=== PATIENT | female | born 1950 | race Caucasian/White ===

== ENCOUNTER 2024-10-16 09:27 | Inpatient (IN) ==
--- NOTE | 2024-10-16 10:05 | Emergency Department Note ---
Impression & Plan Pyelonephritis, COVID, Hematoma of abdominal wall, Acute UTI, On warfarin therapy, Elevated troponin ED Provider Note NAME: ISAIAH IRELAND AGE: 74 SEX: F : 1950 ARRIVES VIA: Walk-In INFORMANT: Patient ED PROVIDER(S): Cesar Castro DO CHIEF COMPLAINT: Fever HPI: Patient is a 74-year-old female on Coumadin with a history of mitral valve replacement who presents to the ER for fevers as high as 102-103. Symptoms started yesterday. She admits to diffuse shaking chills. Has a faint headache. No neck pain. No chest pain or shortness of breath. No vomiting or diarrhea. She admits to abdominal wall hematoma while she was given herself shots of Lovenox bridging to Coumadin. She notes it is feeling better. No dysuria, urgency or frequency. No other exacerbating or remitting factors. She denies any cough, congestion or runny nose. ADDITIONAL HISTORY OBTAINED: Per HPI Chronic Medical/Social Conditions Affecting Care: Per HPI PAST MEDICAL HISTORY:See Below PAST SURGICAL HISTORY:See Below FAMILY HISTORY:See Below SOCIAL HISTORY:See Below HOME MEDICATIONS:See Below ALLERGIES:See Below VITALS:See Below PHYSICAL EXAMINATION: GENERAL: Sitting up in bed, alert, well appearing, well nourished, no distress, non-toxic EYE EXAM: normal conjunctiva. PERRL and EOM's grossly intact. OROPHARYNX: no exudate, no erythema, lips, buccal mucosa, and tongue normal and mucous membranes are moist NECK: supple, no nuchal rigidity, no adenopathy, non-tender LUNGS: Clear to auscultation. Normal chest wall mechanics HEART: no murmurs, S1 normal and S2 normal ABDOMEN: Firmness in the left lateral abdomen with bruising tracking to the suprapubic region, non-tender, normo-active bowel sounds, no masses, no rebound or guarding. UPPER EXTREMITIES: upper extremities are grossly normal. LOWER EXTREMITIES: No pitting edema. NEURO EXAM: Normal sensorium, cranial nerves II-XII grossly intact, normal speech, no gross weakness of arms, no gross weakness of legs. MEDICAL DECISION MAKING: Patient is a 74-year-old female who presents ER for the below stated complaint. IV was established and blood work was obtained. Labs show no significant leukocytosis and a mild anemia at 10.1. INR at 1.9. BMP with mild hyponatremia at 131. Glucose at 139. LFTs and bilirubin while unremarkable. Troponin mildly elevated in 30s. UA with leuks whites and +2 bacteria although slightly Contaminated with epithelial cells. CT abdomen pelvis suggested pyelonephritis. Viral panel was positive for COVID. Chest x-ray with improving opacities in the bases. Patient was given IV fluids and IV Rocephin. Updated bedside discussed case with the hospitalist for further evaluation management treatment. Consults/Care Managements Discussions: Per [facility] Triage Nursing notes reviewed. Limited review of prior medical records performed Vital Signs: reviewed and remarkable for no significant abnormalities Differential diagnosis: Differential diagnosis includes etiologies such as sepsis, UTI, pneumonia, metabolic, electrolyte abnormalities, cardiac sources, intracerebral event, toxicologic, neurological, as well as others were entertained. ER treatment provided: See below Diagnostics interpreted by me include EKG and cardiac monitoring as listed below: -Cardiac Monitoring: An order was placed for continuous cardiac monitoring. The monitor shows a rate of 80 with sinus rhythm. -ECG: Sinus rhythm rate 76 Normal axis No PVCs QTc 436 -Laboratory studies:Interpreted by me as stated above in MDM and shown below. Imaging studies: Xrays: As interpreted by me: Portable AP upright 1 view of the chest shows bilateral lower lobe infiltrates with pacemaker in place CTs show: CT abdomen pelvis as described above showed pyelonephritis and lower lobe infiltrates Procedures:none Critical Care: None Past Med/Surg History Problem List (Updated 10/16/24 @ 15:32 by Cesar Castro DO) Elevated troponin (Acute) Acute UTI (Acute) COVID (Acute) Pyelonephritis (Acute) COVID On warfarin therapy (Acute) Subtherapeutic international normalized ratio (INR) (Acute) H/O mitral valve replacement with mechanical valve (Acute) Hematoma of abdominal wall (Acute) Medical History Hypertension Surgical History History of carpal tunnel surgery of left wrist H/O mitral valve replacement Social History Smoking Status: Never smoker Preferred Language: [place] Feels Safe at Home: Yes Allergies Allergies Allergy/AdvReac Type Severity Reaction Status Date / Time Sulfa (Sulfonamide Allergy Intermediate Hives Unverified 10/07/24 11:42 Antibiotics) Home Meds Home Medications Medication Instructions Recorded Confirmed ascorbic acid (vitamin C) 500 mg 500 mg PO DAILY 10/07/24 10/16/24 tablet (Vitamin C) atenolol 25 mg tablet 12.5 mg PO DAILY 10/07/24 10/16/24 cholecalciferol (vitamin D3) 25 25 mcg PO DAILY 10/07/24 10/16/24 mcg (1,000 unit) tablet (Vitamin D3) hydrochlorothiazide 12.5 mg tablet 12.5 mg PO DAILY 10/07/24 10/16/24 lactobacillus combination no.4 3 3,000 mmu cells PO DAILY 10/07/24 10/16/24 billion cell capsule (Probiotic) omega [id number] oil 1,000 mg 1 cap PO DAILY 10/07/24 10/16/24 (120 mg-180 mg) capsule (Fish Oil) paroxetine HCl 20 mg tablet 20 mg PO DAILY 10/07/24 10/16/24 thiamine HCl (vitamin B1) 100 mg 100 mg PO DAILY 10/07/24 10/16/24 tablet (Vitamin B-1) warfarin 5 mg tablet See Rx Instructions .Route .COMPLEX 10/07/24 10/16/24 zinc gluconate 100 mg tablet 100 mg PO DAILY 10/16/24 10/16/24 Results & Data (ED) Vital Signs Vital Signs - 24 hr 10/16/24 09:39 10/16/24 10:24 10/16/24 10:30 Temperature 37.7 C H Temperature Source Oral Pulse Rate 77 87 87 Pulse Rate from SpO2 Sensor Pulse Rhythm Regular Pulse Strength Normal Respiratory Rate 18 16 16 Respiratory Effort / Characteristics Non-Labored Respiratory Depth Normal Respiratory Pattern Regular Blood Pressure 110/65 108/54 L 111/45 L Blood Pressure Mean 80 76 64 Blood Pressure Position Sitting Pulse Oximetry 97 96 96 Oxygen Delivery Method Room Air Room Air Room Air Oxygen Flow Rate Sepsis Recent Fever Within 48 Hours Yes Sepsis New/Unexplained Change in Mental Status N/A Sepsis Action Taken by Nursing No Action Required 10/16/24 11:00 10/16/24 11:30 10/16/24 11:45 Temperature Temperature Source Pulse Rate 78 Pulse Rate from SpO2 Sensor Pulse Rhythm Pulse Strength Respiratory Rate 16 Respiratory Effort / Characteristics Respiratory Depth Respiratory Pattern Blood Pressure 124/60 119/67 Blood Pressure Mean 86 94 Blood Pressure Position Pulse Oximetry 96 89 L 97 Oxygen Delivery Method Room Air Nasal Cannula Room Air Oxygen Flow Rate 4 Sepsis Recent Fever Within 48 Hours Sepsis New/Unexplained Change in Mental Status Sepsis Action Taken by Nursing 10/16/24 12:00 10/16/24 12:08 10/16/24 12:30 Temperature Temperature Source Pulse Rate 83 71 83 Pulse Rate from SpO2 Sensor Pulse Rhythm Pulse Strength Respiratory Rate 22 14 Respiratory Effort / Characteristics Respiratory Depth Respiratory Pattern Blood Pressure 116/61 120/51 L Blood Pressure Mean 89 85 Blood Pressure Position Pulse Oximetry 98 Oxygen Delivery Method Room Air Oxygen Flow Rate Sepsis Recent Fever Within 48 Hours Sepsis New/Unexplained Change in Mental Status Sepsis Action Taken by Nursing 10/16/24 12:45 10/16/24 13:00 10/16/24 13:15 Temperature Temperature Source Pulse Rate 85 81 Pulse Rate from SpO2 Sensor 85 Pulse Rhythm Pulse Strength Respiratory Rate 16 19 16 Respiratory Effort / Characteristics Respiratory Depth Respiratory Pattern Blood Pressure 118/65 114/50 L 121/61 Blood Pressure Mean 85 71 82 Blood Pressure Position Pulse Oximetry 98 94 98 Oxygen Delivery Method Room Air Room Air Room Air Oxygen Flow Rate Sepsis Recent Fever Within 48 Hours Sepsis New/Unexplained Change in Mental Status Sepsis Action Taken by Nursing Laboratory Data 10/16/24 10:00 10/16/24 10:00 Lab Results 10/16/24 10/16/24 10/16/24 Range/Units 10:00 10:20 10:29 WBC 8.25 (4.8-10.8) K/ul RBC 3.39 L (4.20-5.40) M/uL Hgb 10.1 L (12.0-16.0) g/dl POC Hgb 9.9 L (12.0-16.0) g/dl Hct 30.5 L (37.0-47.0) % POC Hct 29 L (37-47) % MCV 90.0 (80.0-100.0) fL MCH 29.8 (25.0-34.0) pg MCHC 33.1 (32.0-36.0) g/dL RDW Std Deviation 45.6 (36.4-46.3) fL RDW Coeff of Gregorio 14.2 (11.5-14.5) % Plt Count 349 (130-400) K/uL MPV 9.0 L (9.4-12.4) fL Immature Gran % (Auto) 0.8 % Neut % (Auto) 80.7 % Lymph % (Auto) 6.2 % [place] % (Auto) 11.9 % Eos % (Auto) 0.2 % Baso % (Auto) 0.2 % Neut # (Auto) 6.65 H (1.40-6.50) K/uL Lymph # (Auto) 0.51 L (1.20-3.40) K/uL [place] # (Auto) 0.98 H (0.11-0.59) K/uL Eos # (Auto) 0.02 (0.00-0.50) K/uL Baso # (Auto) 0.02 (0.00-0.20) K/uL Immature Gran # (Auto) 0.07 (0.01-0.20) K/uL PT 19.7 H (9.0-12.0) Seconds INR 1.9 H (0.9-1.1) POC Sodium 132 L (135-144) mmol/L Sodium 131 L (136-145) mmol/L POC Potassium 3.8 (3.3-5.0) mmol/L Potassium 3.9 (3.5-5.1) mmol/L POC Chloride 94 L (101-112) mmol/L Chloride 97 L (98-107) mmol/L Carbon Dioxide 29 (21-32) mmol/L POC Total CO2 28 (24-31) mmol/L Anion Gap 5 (3-11) POC Anion Gap 14.0 L (16-25) mmol/L POC BUN 15 (7-18) mg/dl BUN 16 (6-23) mg/dl Creatinine 0.89 (0.6-1.2) mg/dl POC Creatinine 1.1 (0.6-1.3) mg/dl Est Cr Clr Drug Dosing 50.6 ml/min eGFR 67.57 BUN/Creatinine Ratio 18.0 (10-20) Glucose 139 H (70-99(Fasting)) mg/dl POC Glucose (other) 136 H (70-99) mg/dl Lactate 1.5 (0.4-2.0) mmol/L Calcium 9.1 (8.6-10.3) mg/dl POC Ioniz Calcium Ricky 1.15 (1.12-1.32) mmol/l Magnesium 1.7 (1.7-2.4) mg/dl Total Bilirubin 0.6 (0.2-1.0) mg/dl Direct Bilirubin TNP AST 30 (13-39) U/L ALT 23 (7-52) U/L Alkaline Phosphatase 76 (34-104) U/L Troponin I High Sens 36.2 H (0-14) pg/ml Total Protein 7.2 (6.0-8.3) gm/dl Albumin 3.5 (3.4-5.0) gm/dl Procalcitonin 0.14 (0-0.5) ng/ml Urine Color Yellow Urine Appearance Cloudy A (Clear) Urine pH 6.0 (4.5-7.5) Ur Specific [place] 1.020 (1.000-1.030) Urine Protein Negative (Negative) Urine Glucose (UA) Negative (Negative) Urine Ketones Negative (Negative) Urine Blood Negative (Negative) Urine Nitrite Negative (Negative) Urine Bilirubin Negative (Negative) Urine Urobilinogen Negative (Negative) Ur Leukocyte Esterase 2+ H (Negative) Urine WBC (Auto) 21-50 H (0-5) /hpf Urine RBC (Auto) 0-2 (0-2) /hpf U Hyaline Cast (Auto) 0-2 (0-2) /lpf U Epithel Cells (Auto) 11-20 H (0-2) /hpf Urine Bacteria (Auto) 2+ H (None Seen) Adenovirus (PCR) Not Detected (NotDetected) B. pertussis DNA (PCR) Not Detected (NotDetected) B.parapertussis DNA PCR Not Detected (NotDetected) C. pneumoniae DNA (PCR) Not Detected (NotDetected) Coronavirus OC43 (PCR) Not Detected (NotDetected) Coronavirus HKU1 (PCR) Not Detected (NotDetected) Coronavirus 229E (PCR) Not Detected (NotDetected) SARS-CoV-2 (PCR) DETECTED A (NotDetected) Coronavirus NL63 (PCR) Not Detected (NotDetected) Human Metapneumovir PCR Not Detected (NotDetected) Influenza Type A (PCR) Not Detected (NotDetected) Influenza Type B (PCR) Not Detected (NotDetected) M. pneumoniae (PCR) Not Detected (NotDetected) Parainfluenza 1 (PCR) Not Detected (NotDetected) Parainfluenza 2 (PCR) Not Detected (NotDetected) Parainfluenza 3 (PCR) Not Detected (NotDetected) Parainfluenza 4 (PCR) Not Detected (NotDetected) RSV (PCR) Not Detected (NotDetected) Entero/Rhino (PCR) Not Detected (NotDetected) 10/16/24 Range/Units 12:13 WBC (4.8-10.8) K/ul RBC (4.20-5.40) M/uL Hgb (12.0-16.0) g/dl POC Hgb (12.0-16.0) g/dl Hct (37.0-47.0) % POC Hct (37-47) % MCV (80.0-100.0) fL MCH (25.0-34.0) pg MCHC (32.0-36.0) g/dL RDW Std Deviation (36.4-46.3) fL RDW Coeff of Gregorio (11.5-14.5) % Plt Count (130-400) K/uL MPV (9.4-12.4) fL Immature Gran % (Auto) % Neut % (Auto) % Lymph % (Auto) % [place] % (Auto) % Eos % (Auto) % Baso % (Auto) % Neut # (Auto) (1.40-6.50) K/uL Lymph # (Auto) (1.20-3.40) K/uL [place] # (Auto) (0.11-0.59) K/uL Eos # (Auto) (0.00-0.50) K/uL Baso # (Auto) (0.00-0.20) K/uL Immature Gran # (Auto) (0.01-0.20) K/uL PT (9.0-12.0) Seconds INR (0.9-1.1) POC Sodium (135-144) mmol/L Sodium (136-145) mmol/L POC Potassium (3.3-5.0) mmol/L Potassium (3.5-5.1) mmol/L POC Chloride (101-112) mmol/L Chloride (98-107) mmol/L Carbon Dioxide (21-32) mmol/L POC Total CO2 (24-31) mmol/L Anion Gap (3-11) POC Anion Gap (16-25) mmol/L POC BUN (7-18) mg/dl BUN (6-23) mg/dl Creatinine (0.6-1.2) mg/dl POC Creatinine (0.6-1.3) mg/dl Est Cr Clr Drug Dosing ml/min eGFR BUN/Creatinine Ratio (10-20) Glucose (70-99(Fasting)) mg/dl POC Glucose (other) (70-99) mg/dl Lactate (0.4-2.0) mmol/L Calcium (8.6-10.3) mg/dl POC Ioniz Calcium Ricky (1.12-1.32) mmol/l Magnesium (1.7-2.4) mg/dl Total Bilirubin (0.2-1.0) mg/dl Direct Bilirubin AST (13-39) U/L ALT (7-52) U/L Alkaline Phosphatase (34-104) U/L Troponin I High Sens 32.5 H (0-14) pg/ml Total Protein (6.0-8.3) gm/dl Albumin (3.4-5.0) gm/dl Procalcitonin (0-0.5) ng/ml Urine Color Urine Appearance (Clear) Urine pH (4.5-7.5) Ur Specific [place] (1.000-1.030) Urine Protein (Negative) Urine Glucose (UA) (Negative) Urine Ketones (Negative) Urine Blood (Negative) Urine Nitrite (Negative) Urine Bilirubin (Negative) Urine Urobilinogen (Negative) Ur Leukocyte Esterase (Negative) Urine WBC (Auto) (0-5) /hpf Urine RBC (Auto) (0-2) /hpf U Hyaline Cast (Auto) (0-2) /lpf U Epithel Cells (Auto) (0-2) /hpf Urine Bacteria (Auto) (None Seen) Adenovirus (PCR) (NotDetected) B. pertussis DNA (PCR) (NotDetected) B.parapertussis DNA PCR (NotDetected) C. pneumoniae DNA (PCR) (NotDetected) Coronavirus OC43 (PCR) (NotDetected) Coronavirus HKU1 (PCR) (NotDetected) Coronavirus 229E (PCR) (NotDetected) SARS-CoV-2 (PCR) (NotDetected) Coronavirus NL63 (PCR) (NotDetected) Human Metapneumovir PCR (NotDetected) Influenza Type A (PCR) (NotDetected) Influenza Type B (PCR) (NotDetected) M. pneumoniae (PCR) (NotDetected) Parainfluenza 1 (PCR) (NotDetected) Parainfluenza 2 (PCR) (NotDetected) Parainfluenza 3 (PCR) (NotDetected) Parainfluenza 4 (PCR) (NotDetected) RSV (PCR) (NotDetected) Entero/Rhino (PCR) (NotDetected) Administered Medications Sodium Chloride (Nss) 1,000 mls @ 125 mls/hr IV .Q8H AYALA Stop: 10/17/24 13:29 Last Admin: 10/16/24 13:57 Dose: 125 mls/hr Documented By: MINA Discontinued Medications Sodium Chloride (Nss) 1,000 mls @ 999 mls/hr IV .Q1H1M ONE Stop: 10/16/24 11:01 Last Infusion: 10/16/24 12:28 Dose: Infused Documented By: Admin: 10/16/24 10:23 Dose: 999 mls/hr Documented By: MINA Ceftriaxone Sodium (Rocephin) 2,000 mg in 50 mls @ 100 mls/hr IV NOW STA Stop: 10/16/24 11:38 Last Infusion: 10/16/24 12:28 Dose: Infused Documented By: Admin: 10/16/24 11:42 Dose: 100 mls/hr Documented By: CHERIE Sodium Chloride (Nss) 1,000 mls @ 999 mls/hr IV .Q1H1M ONE Stop: 10/16/24 13:26 Last Infusion: 10/16/24 15:10 Dose: Infused Documented By: Admin: 10/16/24 13:08 Dose: 999 mls/hr Documented By: CHERIE Ioversol (Optiray 320 100ml) 93 ml IV ONCE ONE Stop: 10/16/24 11:29 Last Admin: 10/16/24 11:28 Dose: 93 ml Documented By: JIGNA Methylprednisolone (Methylprednisolone 125 Mg/2 Ml Vial) 125 mg IV NOW STA Stop: 10/16/24 13:29 Last Admin: 10/16/24 13:50 Dose: 125 mg Documented By: MINA Imaging Data Radiologist's Impression: Abdomen/Pelvis CT 10/16/24 10:01 EXAM: CT Abdomen and Pelvis With Intravenous Contrast INDICATION: Nausea, abdominal hematoma and sepsis. TECHNIQUE: Axial computed tomography images of the abdomen and pelvis with intravenous contrast. Sagittal and coronal reformatted images were created and reviewed. This CT exam was performed using one or more of the following dose reduction techniques: automated exposure control, adjustment of the mA and/or kV according to patient size, and/or use of iterative reconstruction technique. CONTRAST: 3ml of Optiray 320 was administered intravenously. COMPARISON: 10/07/2024 FINDINGS: Limitations: None. Lung bases: Persistent but improved patchy infiltrates in the visualized lung bases. Pleural space: No basilar pleural effusion. Heart: Cardiomegaly noted. Cardiac pacing device noted. Metallic artifact limits assessment of lead integrity. Mediastinum: Stable moderate hiatal hernia. ABDOMEN: Liver: Low attenuation focus in the liver consistent with a hepatic cyst. No follow-up is necessary. Normal size and contour. Hypodense typical of steatosis. No mass or ductal dilation. Gallbladder and bile ducts: No calcified stones or surrounding fluid. Pancreas: Homogeneous enhancement. No mass, inflammation or ductal dilation. Spleen: No significant abnormality noted. Adrenals: No significant abnormality noted. Kidneys and ureters: Stable focus of mild diminished attenuation in the lateral cortex upper pole right kidney. No stones. No urinary gas. No perinephric fluid. Tiny simple renal cysts noted. No further assessment required. Stomach and bowel: Stable proximal duodenal diverticulum measuring roughly 3.0 x 2.4 cm. No inflammation. Moderate stool throughout the colon with extensive diverticulosis. No diverticulitis or obstruction. PELVIS: Appendix: Well seen and appears normal. Bladder: No filling defects to suggest mass or large stone. No inflammation. Reproductive: Stable endometrial thickening of 2 cm. ABDOMEN and PELVIS: Intraperitoneal space: No free air. No significant fluid collection. Bones/joints: No acute changes. Soft tissues: Stable right Bochdalek hernia containing fat. Left abdominal wall hematoma is more defined with slight increased liquefaction. It measures 12.0 cm AP by approximately 5.4 cm transverse by 9.8 cm long. There is decrease surrounding inflammation. Smaller satellite hematomas noted. Stable hematoma in the right lower subcutaneous fat. Vasculature: No abdominal aortic aneurysm. Lymph nodes: No pathologically enlarged lymph nodes. IMPRESSION: 1. Grossly stable left abdominal wall hematoma with slight improved surrounding edema. 2. Persistent but improved patchy infiltrates in the lung bases. 3. Small focus of right pyelonephritis suspected. Correlate with urinalysis. 4. Abnormal endometrial thickness for age. Endometrial neoplasm not excluded. Correlate with nonemergent ultrasound. ACT 112: Negative or not required by law. Electronically signed by Juju Damian 10-16-2024 12:03 PM Chest X-Ray 10/16/24 10:01 EXAM: Radiograph of the Chest 1 View INDICATION: Sepsis. TECHNIQUE: Frontal view of the chest. COMPARISON: No relevant prior studies available. FINDINGS: Lungs and pleural spaces: There is prominent pulmonary vasculature with patchy infiltrates in each base right greater than left. No pleural effusion or pneumothorax. Heart: Enlarged shadow with right atrial and ventricular intact pacing wires present. Aortic valve prosthetic noted. Mediastinum: Normal contour. Bones/joints: No fracture, erosion or dislocation. Soft tissues: No abnormality noted. No radiopaque foreign body noted. Upper abdomen: No abnormality noted. IMPRESSION: There is patchy basilar pneumonia right greater than left and mild pulmonary vascular congestion. ACT 112: Negative or not required by law. Electronically signed by Juju Damian 10-16-2024 11:08 AM Discharge Plan Visit Data Chief Complaint: Flu Like Symptoms Stated Complaint: FEVER/18HRS, FATIGUE, BLOOD THINNERS ED Provider: Cesar Castro Discharge Problem: Pyelonephritis, COVID, Hematoma of abdominal wall, Acute UTI, On warfarin therapy, Elevated troponin Patient Disposition: Admitted As Inpatient Discharge Instructions Interventions: ED Discharge Assessment Last Done: 10/16/24 14:23 Discharge Problem: Hematoma of abdominal wall Qualifiers: Encounter type: initial encounter Qualified Code(s): S30.1XXA - Contusion of abdominal wall, initial encounter
[2024-10-16 10:18] LABS: Basophils # (auto) 0.02 K/uL (0.00-0.20); Basophils % (auto) 0.2 %; Eosinophils # (auto) 0.02 K/uL (0.00-0.50); Eosinophils % (auto) 0.2 %; Hematocrit (blood only) 30.5 % (37.0-47.0); Hemoglobin 10.1 g/dl (12.0-16.0); Immature Granulocytes # (auto) 0.07 K/uL (0.01-0.20); Immature Granulocytes % (auto) 0.8 %; Lymphocytes # (auto) 0.51 K/uL (1.20-3.40); Lymphocytes % (auto) 6.2 %; Mean Corpuscular Hemoglobin 29.8 pg (25.0-34.0); Mean Corpuscular Hgb Conc 33.1 g/dL (32.0-36.0); Monocytes # (auto) 0.98 K/uL (0.11-0.59); Monocytes % (auto) 11.9 %; Neutrophils # (auto) 6.65 K/uL (1.40-6.50); Neutrophils % (auto) 80.7 %; Platelet Count 349 K/uL (130-400); RDW Coefficient of Variation 14.2 % (11.5-14.5); RDW Standard Deviation 45.6 fL (36.4-46.3); Red Blood Count 3.39 M/uL (4.20-5.40); White Blood Count 8.25 K/ul (4.8-10.8)
[2024-10-16] MEDS: SODIUM CHLORIDE 0.9% 1,000 ML IV ONE ×2 (10:23→13:08)
[2024-10-16 10:28] LABS: Appearance Urine Cloudy (Clear); Bacteria Urine Automated 2+ (None Seen); Bilirubin Urine Negative (Negative); Blood Urine Negative (Negative); Cast Urine Automated 0-2 /lpf (0-2); Color Urine Yellow; Glucose Urine UA Negative (Negative); Ketones Urine Negative (Negative); Leukocyte Esterase Urine 2+ (Negative); Nitrite Urine Negative (Negative); Protein Urine Negative (Negative); RBC Urine Automated 0-2 /hpf (0-2); Urobilinogen Urine Negative (Negative); WBC Urine Automated 21-50 /hpf (0-5)
[2024-10-16 10:46] LABS: INR 1.9 (0.9-1.1); Prothrombin Time 19.7 Seconds (9.0-12.0)
[2024-10-16 10:52] LABS: iSTAT Creatinine 1.1 mg/dl (0.6-1.3); iSTAT Hemoglobin 9.9 g/dl (12.0-16.0); iSTAT Ionized Calcium 1.15 mmol/l (1.12-1.32); iSTAT Potassium 3.8 mmol/L (3.3-5.0)
[2024-10-16 10:59] LABS: Alanine Aminotransferase 23 U/L (7-52); Albumin Level 3.5 gm/dl (3.4-5.0); Alkaline Phosphatase 76 U/L (34-104); Anion Gap 5 (3-11); Aspartate Aminotransferase 30 U/L (13-39); Bilirubin,Total 0.6 mg/dl (0.2-1.0); Blood Urea Nitrogen 16 mg/dl (6-23); Calcium 9.1 mg/dl (8.6-10.3); Carbon Dioxide 29 mmol/L (21-32); Chloride 97 mmol/L (98-107); Creatinine Clr Calc Pharmacy 50.6 ml/min; Glucose 139 mg/dl (70-99(Fasting)); Magnesium 1.7 mg/dl (1.7-2.4); Potassium 3.9 mmol/L (3.5-5.1); Sodium 131 mmol/L (136-145); Total Protein 7.2 gm/dl (6.0-8.3); Troponin I High Sensitivity 36.2 pg/ml (0-14)
[2024-10-16 11:04] LABS: Adenovirus PCR Not Detected (NotDetected); Bordetella parapertussis PCR Not Detected (NotDetected); Bordetella pertussis PCR Not Detected (NotDetected); Chlamydia pneumoniae PCR Not Detected (NotDetected); Coronavirus 229E PCR Not Detected (NotDetected); Coronavirus CoV-2 (COVID19)PCR DETECTED (NotDetected); Coronavirus HKU1 PCR Not Detected (NotDetected); Coronavirus NL63 PCR Not Detected (NotDetected); Coronavirus OC43PCR Not Detected (NotDetected); Human Metapneumovirus PCR Not Detected (NotDetected); Influenza A PCR Not Detected (NotDetected); Influenza B PCR Not Detected (NotDetected); Mycoplasma pneumoniae PCR Not Detected (NotDetected); Parainfluenza Virus 1 PCR Not Detected (NotDetected); Parainfluenza Virus 2 PCR Not Detected (NotDetected); Parainfluenza Virus 3 PCR Not Detected (NotDetected); Parainfluenza Virus 4 PCR Not Detected (NotDetected); Respiratory Syncytial VirusPCR Not Detected (NotDetected); Rhinovirus/Enterovirus PCR Not Detected (NotDetected)
--- NOTE | 2024-10-16 11:09 | XRay Report ---
EXAM: Radiograph of the Chest 1 View INDICATION: Sepsis. TECHNIQUE: Frontal view of the chest. COMPARISON: No relevant prior studies available. FINDINGS: Lungs and pleural spaces: There is prominent pulmonary vasculature with patchy infiltrates in each base right greater than left. No pleural effusion or pneumothorax. Heart: Enlarged shadow with right atrial and ventricular intact pacing wires present. Aortic valve prosthetic noted. Mediastinum: Normal contour. Bones/joints: No fracture, erosion or dislocation. Soft tissues: No abnormality noted. No radiopaque foreign body noted. Upper abdomen: No abnormality noted. IMPRESSION: There is patchy basilar pneumonia right greater than left and mild pulmonary vascular congestion. ACT 112: Negative or not required by law. Electronically signed by Juju Damian 10-16-2024 11:08 AM
[2024-10-16] MEDS: OPTIRAY 320 100ml IV ONE (11:28)
[2024-10-16] MEDS: cefTRIAXone SODIUM 2,000 MG/50 ML BAG IV STA (11:42)
--- NOTE | 2024-10-16 12:05 | CT Scan Report ---
EXAM: CT Abdomen and Pelvis With Intravenous Contrast INDICATION: Nausea, abdominal hematoma and sepsis. TECHNIQUE: Axial computed tomography images of the abdomen and pelvis with intravenous contrast. Sagittal and coronal reformatted images were created and reviewed. This CT exam was performed using one or more of the following dose reduction techniques: automated exposure control, adjustment of the mA and/or kV according to patient size, and/or use of iterative reconstruction technique. CONTRAST: 3ml of Optiray 320 was administered intravenously. COMPARISON: 10/07/2024 FINDINGS: Limitations: None. Lung bases: Persistent but improved patchy infiltrates in the visualized lung bases. Pleural space: No basilar pleural effusion. Heart: Cardiomegaly noted. Cardiac pacing device noted. Metallic artifact limits assessment of lead integrity. Mediastinum: Stable moderate hiatal hernia. ABDOMEN: Liver: Low attenuation focus in the liver consistent with a hepatic cyst. No follow-up is necessary. Normal size and contour. Hypodense typical of steatosis. No mass or ductal dilation. Gallbladder and bile ducts: No calcified stones or surrounding fluid. Pancreas: Homogeneous enhancement. No mass, inflammation or ductal dilation. Spleen: No significant abnormality noted. Adrenals: No significant abnormality noted. Kidneys and ureters: Stable focus of mild diminished attenuation in the lateral cortex upper pole right kidney. No stones. No urinary gas. No perinephric fluid. Tiny simple renal cysts noted. No further assessment required. Stomach and bowel: Stable proximal duodenal diverticulum measuring roughly 3.0 x 2.4 cm. No inflammation. Moderate stool throughout the colon with extensive diverticulosis. No diverticulitis or obstruction. PELVIS: Appendix: Well seen and appears normal. Bladder: No filling defects to suggest mass or large stone. No inflammation. Reproductive: Stable endometrial thickening of 2 cm. ABDOMEN and PELVIS: Intraperitoneal space: No free air. No significant fluid collection. Bones/joints: No acute changes. Soft tissues: Stable right Bochdalek hernia containing fat. Left abdominal wall hematoma is more defined with slight increased liquefaction. It measures 12.0 cm AP by approximately 5.4 cm transverse by 9.8 cm long. There is decrease surrounding inflammation. Smaller satellite hematomas noted. Stable hematoma in the right lower subcutaneous fat. Vasculature: No abdominal aortic aneurysm. Lymph nodes: No pathologically enlarged lymph nodes. IMPRESSION: 1. Grossly stable left abdominal wall hematoma with slight improved surrounding edema. 2. Persistent but improved patchy infiltrates in the lung bases. 3. Small focus of right pyelonephritis suspected. Correlate with urinalysis. 4. Abnormal endometrial thickness for age. Endometrial neoplasm not excluded. Correlate with nonemergent ultrasound. ACT 112: Negative or not required by law. Electronically signed by Juju Damian 10-16-2024 12:03 PM
[2024-10-16] MEDS ORDERED: ACETAMINOPHEN 325 MG TAB PO PRN (13:26)
--- NOTE | 2024-10-16 13:34 | History & Physical Report ---
Date of Service October 16, 2024 Assessment & Plan (1) COVID: Plan #Flu-like symptoms 2/2 COVID pneumonia -out of the window for remdesivir -oxygen, supportive measures -no obvious significant wheezes noted, though hypoxic in the ED, will give one dose IV steroid but will not extend course #R pyelonephritis -rocephin given in the ED, will continue -monitor VS -f/u UCX -fluids -LA #L abdominal hematoma, improving #MVR on Warfarin -continue warfarin -monitor for worsening, frequent re-evaluation -trend CBC #Normocytic anemia likely 2/2 MVR -iron studies #NSTEMI type 2 likely in the setting of above -consider EKG/trop if new/changing cp or palpitations -troponins trending down #Endometrial thickening of 2cm -TVUS IVF, regular diet No DVT ppx on warfarin History of Present Illness Primary Care Provider: Chaparro Barros 74F pmh MVR on warfarin who presents to the ED with fatigue and chills. Patient states she underwent carpal tunnel surgery about 2 weeks ago and was at that time started on prophylactic doxycycline to prevent infection. About 1 week ago she started to have fatigue, and then yesterday began to have fevers as high as 103 and chills, which prompted her to present to the ED. Denies other symptoms including cough, sob, myalgias. In the ED found to have UTI and R pyelo, but denies urinary symptoms such as frequency, hesitancy, discharge, or any other problems. VSS on my evaluation. Satting 95%. Of note, during her hospital stay for surgery she was bridging lovenox to warfarin and gave herself large abdominal wall hematoma on the L side, which she states is improving, denies pain, enlarging, any worsening. Allergies Allergy/AdvReac Type Severity Reaction Status Date / Time Sulfa (Sulfonamide Allergy Intermediate Hives Unverified 10/07/24 11:42 Antibiotics) Home Medications Medication Instructions Recorded Confirmed Type ascorbic acid (vitamin C) 500 mg 500 mg PO DAILY 10/07/24 10/07/24 History tablet (Vitamin C) atenolol 25 mg tablet 12.5 mg PO DAILY 10/07/24 10/07/24 History cholecalciferol (vitamin D3) 25 25 mcg PO DAILY 10/07/24 10/07/24 History mcg (1,000 unit) tablet (Vitamin D3) doxycycline hyclate 100 mg tablet 100 mg PO BID 10/07/24 10/07/24 History hydrochlorothiazide 12.5 mg tablet 12.5 mg PO DAILY 10/07/24 10/07/24 History lactobacillus combination no.4 3 3,000 mmu cells PO DAILY 10/07/24 10/07/24 History billion cell capsule (Probiotic) omega 9-[id number]-izb-fish oil 1,000 mg 1 cap PO DAILY 10/07/24 10/07/24 History (120 mg-180 mg) capsule (Fish Oil) paroxetine HCl 20 mg tablet 20 mg PO DAILY 10/07/24 10/07/24 History thiamine HCl (vitamin B1) 100 mg 100 mg PO DAILY 10/07/24 10/07/24 History tablet (Vitamin B-1) warfarin 5 mg tablet See Rx Instructions .Route .COMPLEX 10/07/24 10/07/24 History zinc 100 mg tablet 100 mg PO DAILY 10/07/24 10/07/24 History Past Med/Surg History Problem List (Updated 10/16/24 @ 13:17 by Osman Chavira MD) COVID On warfarin therapy (Acute) Subtherapeutic international normalized ratio (INR) (Acute) H/O mitral valve replacement with mechanical valve (Acute) Hematoma of abdominal wall (Acute) Medical History Hypertension Surgical History History of carpal tunnel surgery of left wrist H/O mitral valve replacement Social History Smoking Status: Never smoker Preferred Language: Citizen Of [place] Feels Safe at Home: Yes Review of Systems Constitutional: + fever, + chills and + fatigue Respiratory: no cough, no chest congestion, no dyspnea, no dyspnea on exertion and no wheezing Genitourinary: no dysuria, no urinary frequency, no urinary hesitancy and no urinary incontinence Physical Exam Constitutional: well developed, well nourished and comfortable Respiratory: normal respiratory effort, lungs clear to auscultation Gastrointestinal (Abdomen): Large abdominal wall hematoma on the L side is indurated, nonpainful, nonfl uctuant. Psychiatric: A+Ox3, euthymic affect Results & Data Results & Data Vital Signs (Past 12 Hours) Vital Signs Temp Pulse Resp BP Pulse Ox O2 Del Method O2 Flow Rate 10/16/24 12:08 71 10/16/24 11:30 89 L Nasal Cannula 4 10/16/24 11:00 16 124/60 96 Room Air 10/16/24 10:30 87 16 111/45 L 96 Room Air 10/16/24 10:24 87 16 108/54 L 96 Room Air 10/16/24 09:39 37.7 C H 77 18 110/65 97 Room Air Laboratory Results Abnormal lab results 10/16/24 10/16/24 10/16/24 Range/Units 10:00 10:29 12:13 RBC 3.39 L (4.20-5.40) M/uL Hgb 10.1 L (12.0-16.0) g/dl POC Hgb 9.9 L (12.0-16.0) g/dl Hct 30.5 L (37.0-47.0) % POC Hct 29 L (37-47) % MPV 9.0 L (9.4-12.4) fL Neut # (Auto) 6.65 H (1.40-6.50) K/uL Lymph # (Auto) 0.51 L (1.20-3.40) K/uL [place] # (Auto) 0.98 H (0.11-0.59) K/uL PT 19.7 H (9.0-12.0) Seconds INR 1.9 H (0.9-1.1) POC Sodium 132 L (135-144) mmol/L Sodium 131 L (136-145) mmol/L POC Chloride 94 L (101-112) mmol/L Chloride 97 L (98-107) mmol/L POC Anion Gap 14.0 L (16-25) mmol/L Glucose 139 H (70-99(Fasting)) mg/dl POC Glucose (other) 136 H (70-99) mg/dl Troponin I High Sens 36.2 H 32.5 H (0-14) pg/ml Urine Appearance Cloudy A (Clear) Ur Leukocyte Esterase 2+ H (Negative) Urine WBC (Auto) 21-50 H (0-5) /hpf U Epithel Cells (Auto) 11-20 H (0-2) /hpf Urine Bacteria (Auto) 2+ H (None Seen) SARS-CoV-2 (PCR) DETECTED A (NotDetected) Diagnostic Findings Abdomen/Pelvis CT 10/16/24 10:01 EXAM: CT Abdomen and Pelvis With Intravenous Contrast INDICATION: Nausea, abdominal hematoma and sepsis. TECHNIQUE: Axial computed tomography images of the abdomen and pelvis with intravenous contrast. Sagittal and coronal reformatted images were created and reviewed. This CT exam was performed using one or more of the following dose reduction techniques: automated exposure control, adjustment of the mA and/or kV according to patient size, and/or use of iterative reconstruction technique. CONTRAST: 3ml of Optiray 320 was administered intravenously. COMPARISON: 10/07/2024 FINDINGS: Limitations: None. Lung bases: Persistent but improved patchy infiltrates in the visualized lung bases. Pleural space: No basilar pleural effusion. Heart: Cardiomegaly noted. Cardiac pacing device noted. Metallic artifact limits assessment of lead integrity. Mediastinum: Stable moderate hiatal hernia. ABDOMEN: Liver: Low attenuation focus in the liver consistent with a hepatic cyst. No follow-up is necessary. Normal size and contour. Hypodense typical of steatosis. No mass or ductal dilation. Gallbladder and bile ducts: No calcified stones or surrounding fluid. Pancreas: Homogeneous enhancement. No mass, inflammation or ductal dilation. Spleen: No significant abnormality noted. Adrenals: No significant abnormality noted. Kidneys and ureters: Stable focus of mild diminished attenuation in the lateral cortex upper pole right kidney. No stones. No urinary gas. No perinephric fluid. Tiny simple renal cysts noted. No further assessment required. Stomach and bowel: Stable proximal duodenal diverticulum measuring roughly 3.0 x 2.4 cm. No inflammation. Moderate stool throughout the colon with extensive diverticulosis. No diverticulitis or obstruction. PELVIS: Appendix: Well seen and appears normal. Bladder: No filling defects to suggest mass or large stone. No inflammation. Reproductive: Stable endometrial thickening of 2 cm. ABDOMEN and PELVIS: Intraperitoneal space: No free air. No significant fluid collection. Bones/joints: No acute changes. Soft tissues: Stable right Bochdalek hernia containing fat. Left abdominal wall hematoma is more defined with slight increased liquefaction. It measures 12.0 cm AP by approximately 5.4 cm transverse by 9.8 cm long. There is decrease surrounding inflammation. Smaller satellite hematomas noted. Stable hematoma in the right lower subcutaneous fat. Vasculature: No abdominal aortic aneurysm. Lymph nodes: No pathologically enlarged lymph nodes. IMPRESSION: 1. Grossly stable left abdominal wall hematoma with slight improved surrounding edema. 2. Persistent but improved patchy infiltrates in the lung bases. 3. Small focus of right pyelonephritis suspected. Correlate with urinalysis. 4. Abnormal endometrial thickness for age. Endometrial neoplasm not excluded. Correlate with nonemergent ultrasound. ACT 112: Negative or not required by law. Electronically signed by Juju Damian 10-16-2024 12:03 PM Chest X-Ray 10/16/24 10:01 EXAM: Radiograph of the Chest 1 View INDICATION: Sepsis. TECHNIQUE: Frontal view of the chest. COMPARISON: No relevant prior studies available. FINDINGS: Lungs and pleural spaces: There is prominent pulmonary vasculature with patchy infiltrates in each base right greater than left. No pleural effusion or pneumothorax. Heart: Enlarged shadow with right atrial and ventricular intact pacing wires present. Aortic valve prosthetic noted. Mediastinum: Normal contour. Bones/joints: No fracture, erosion or dislocation. Soft tissues: No abnormality noted. No radiopaque foreign body noted. Upper abdomen: No abnormality noted. IMPRESSION: There is patchy basilar pneumonia right greater than left and mild pulmonary vascular congestion. ACT 112: Negative or not required by law. Electronically signed by Juju Damian 10-16-2024 11:08 AM
[2024-10-16] MEDS: methylPREDNISolone 125 MG/2 ML VIAL IV STA (13:50)
[2024-10-16] MEDS: SODIUM CHLORIDE 0.9% 1,000 ML IV SCH (13:57)
--- NOTE | 2024-10-16 14:15 | Electrocardiogram Report ---
Test Reason : Blood Pressure : */* mmHG Vent. Rate : 76 BPM Atrial Rate : 76 BPM P-R Int : 206 ms QRS Dur : 98 ms QT Int : 388 ms P-R-T Axes : 27 -21 39 degrees QTcB Int : 436 ms Normal sinus rhythm Left ventricular hypertrophy with QRS widening and repolarization abnormality Abnormal ECG When compared with ECG of 07-Oct-2024 09:54, No significant change was found Confirmed by Patrick Chen ([id number]) on 10/16/2024 2:15:25 PM Referred By: REFERRED SELF Confirmed By: Patrick Chen
[2024-10-16] MEDS ORDERED: WARFARIN SOD 5 MG TAB PO SCH (16:00)
[2024-10-16] MEDS ORDERED: WARFARIN SOD 2.5 MG TAB PO SCH (16:00)
[2024-10-16] MEDS ORDERED: Nursing to Pharmacy Communication SCH (16:00)
[2024-10-16] MEDS: WARFARIN SOD 5 MG TAB PO SCH (19:59)
[2024-10-16] MEDS: WARFARIN SOD 2.5 MG TAB PO SCH (20:00)
[2024-10-17] MEDS: THIAMINE HCL 100 MG TAB PO SCH (08:01)
[2024-10-17] MEDS: hydroCHLOROthiazide 25 MG TAB PO SCH (08:01)
[2024-10-17] MEDS: ATENOLOL 25 MG TABLET PO SCH (08:02)
[2024-10-17] MEDS: ASCORBIC ACID 500 MG TAB PO SCH (08:02)
[2024-10-17] MEDS: LACTOBACILLUS ACIDOPHILUS 1 GM PACK PO SCH (08:02)
[2024-10-17] MEDS: CHOLECALCIFEROL 25 MCG (1000 UNITS) TAB PO SCH (08:02)
[2024-10-17 08:44] VITALS: BP 119/63; PULSE 96; RESP 20; TEMP 98.1; O2SAT 97
[2024-10-17] MEDS: OMEGA-3 (PURIFIED FISH OIL) 1 GM CAP PO SCH (08:55)
[2024-10-17] MEDS: PARoxetine HCL 20 MG TAB PO SCH (08:55)
[2024-10-17] MEDS ORDERED: ZINC 100 MG PO SCH (09:00)
[2024-10-17] MEDS ORDERED: cefTRIAXone SODIUM 1,000 MG/50 ML BAG IV SCH (13:30)
--- NOTE | 2024-10-17 13:34 | Discharge Summary ---
Discharge Summary Date of Service October 17, 2024 Principal Dx & Hospital Course #1 = Principal Diagnosis (1) COVID: Plan #Flu-like symptoms 2/2 COVID pneumonia -out of the window for remdesivir -on room air #R pyelonephritis -not symptomatic, no burning with urination or CVA tenderness -discharge on 5 days of augmentin, discussed with pharmacy #L abdominal hematoma, improving #MVR on Warfarin -continue warfarin -monitor for worsening, frequent re-evaluation -trend CBC #Normocytic anemia likely 2/2 MVR -iron studies #NSTEMI type 2 likely in the setting of above -troponins trending down #Endometrial thickening of 2cm -discussed with family, f/u outpatient Notes For Next Care Provider 74-year-old female with past medical history of mitral valve replacement on who presents for fatigue and chills. In the ED, tested positive for, COVID, on room air, also found of right pyelonephritis on imaging, admitted to medicine for further workup. On medicine, patient was completely asymptomatic. Labs and vitals are very reassuring, physical exam showed no CVA tenderness, patient denies any burning with urination or frequency of urination. Discussed ultrasound findings and need to follow-up with gynecology. Patient is medically stable for discharge home. Medication Changes From Visit -augmentin Admission HPI Per Admitting Provider 74F pmh MVR on warfarin who presents to the ED with fatigue and chills. Patient states she underwent carpal tunnel surgery about 2 weeks ago and was at that time started on prophylactic doxycycline to prevent infection. About 1 week ago she started to have fatigue, and then yesterday began to have fevers as high as 103 and chills, which prompted her to present to the ED. Denies other symptoms including cough, sob, myalgias. In the ED found to have UTI and R pyelo, but denies urinary symptoms such as frequency, hesitancy, discharge, or any other problems. VSS on my evaluation. Satting 95%. Of note, during her hospital stay for surgery she was bridging lovenox to warfarin and gave herself large abdominal wall hematoma on the L side, which she states is improving, denies pain, enlarging, any worsening. Discharge Exam Gen: A&O 3 NAD HEENT: NCAT, EOMI, not icteric. External ears normal. No rhinorrhea. Moist mucous membranes. Neck: Supple, full range of motion, no observable masses, No meningeal sign. Lungs: No Respiratory distress. CV: RRR, no edema. Abdomen: Soft, nondistended, No rebound tenderness. Left abdominal hematoma noted MSK: No joint swelling, no redness. Skin: No rashes, petechiae, lesions. Normal color per patient. Neuro: Normal Gait, Grossly intact. Psych: Appropriate for situation. Updated Medication List Medication Instructions Recorded Confirmed Type ascorbic acid (vitamin C) 500 mg 500 mg PO DAILY 10/07/24 10/16/24 History tablet (Vitamin C) atenolol 25 mg tablet 12.5 mg PO DAILY 10/07/24 10/16/24 History cholecalciferol (vitamin D3) 25 25 mcg PO DAILY 10/07/24 10/16/24 History mcg (1,000 unit) tablet (Vitamin D3) hydrochlorothiazide 12.5 mg tablet 12.5 mg PO DAILY 10/07/24 10/16/24 History lactobacillus combination no.4 3 3,000 mmu cells PO DAILY 10/07/24 10/16/24 History billion cell capsule (Probiotic) omega 3-fko-nbd-fish oil 1,000 mg 1 cap PO DAILY 10/07/24 10/16/24 History (120 mg-180 mg) capsule (Fish Oil) paroxetine HCl 20 mg tablet 20 mg PO DAILY 10/07/24 10/16/24 History thiamine HCl (vitamin B1) 100 mg 100 mg PO DAILY 10/07/24 10/16/24 History tablet (Vitamin B-1) warfarin 5 mg tablet See Rx Instructions .Route .COMPLEX 10/07/24 10/16/24 History zinc gluconate 100 mg tablet 100 mg PO DAILY 10/16/24 10/16/24 History amoxicillin 500 mg-potassium 1 tab PO BID 5 days #10 tabs 10/17/24 Rx clavulanate 125 mg tablet (Augmentin) Hospital Stay Data Consultations 10/16/24 12:35 ED Decision to Admit Stat Diagnostic Imagining Performed 10/16/24 10:01 CT Abd and Pelvis [CT abd pelvis IV con only] Stat Pending Results Patient Have Any Pending Studies at Discharge: No Discharge Instructions Given to Patient (Per Discharging Provider) 1. Please finish course of antibiotics for right pyelonephritis and UTI. 2. Follow up with gynecology for endometrial thickening and PCP. Total Time Total Time Spent Total Time Spent (In Minutes): I spent a total of 40 minutes in direct patient care, including [id number] time with the patient and/or family, reviewing medical records, ordering and reviewing diagnostic tests, and coordinating care with other healthcare pro viders. This time includes: history taking, physical examination, medical decision making, counseling, ECG interpretation, imaging interpretation, lab interpretation, orders, and education, excluding time spent in the performance of separately billed services.
--- NOTE | 2024-10-18 14:34 | Coding Query ---
CODING QUERY To promote full compliance with coding requirements relating to patient care, provider participation is requested in all cases of business support coordinator uncertainty. Please assist us with the question(s) below: Coding Question(s): COVID and COVID Pneumonia are documented in the record. Please specify below, the type of COVID: ( ) COVID 19 ( ) Other COVID ( ) COVID Unspecified Physician's Response(s): COVID 19 Thank you Angella Morales Principal Diagnosis: "that condition established after study, to be chiefly responsible for occasioning the admission of the patient to the hospital for care." Co-Existing Principal Diagnosis: "when two or more diagnoses equally meet the criteria for principal diagnosis as determined by the circumstances of admission, diagnostic work up, and/or therapy provided, and the Alphabetic Index, Tabular List, or another coding guideline does not provide sequencing direction, any one of the diagnoses may be sequenced first." "When the physician has documented what appears to be a current diagnosis in the body of the record, but has not included the diagnosis in the final diagnostic statement, the physician should be asked whether the diagnosis should be added." (Source Coding [facility] 2 QTR90. p3-4) EMILY
== END 2024-10-17 11:21 | disposition home or self-care (01) | DRG 177 ==
LOC: ED 09:27 → SUATTDRO 13:27 → 2S 13:27